=== PATIENT | male | born 1985 | race African-American/Black ===

== ENCOUNTER 2017-03-03 18:22 | Emergency (ER) | payer MEDICAID ==
[~2017-03-03] VITALS: Ht 185.4 cm; Wt 116.0 kg
[2017-03-03] MEDS ORDERED: IBUPROFEN 600MG TABLET PO ONE (21:15)
[2017-03-03] MEDS ORDERED: LIDOCAINE HCL 1% 20ML VIAL (Pyxis) INJ MC ONE (21:15)
[2017-03-03] MEDS ORDERED: BACITRACIN ZINC OINT UDPKT TOP ONE (21:15)
[2017-03-03 22:00] VITALS: BP 139/87
== END 2017-03-04 | disposition home or self-care (01) ==
LOC: ER 20:37
DX: S51.811A Laceration without foreign body of right forearm, initial encounter (principal); X58.XXXA Exposure to other specified factors, initial encounter; Y93.89 Activity, other specified; Y92.89 Other specified places as the place of occurrence of the external cause; Y99.8 Other external cause status
CPT/HCPCS: 12001; 73090; 99284; J3490; Z7610; 99283